=== PATIENT | female | born 1945 | race Caucasian/White ===

== ENCOUNTER 2016-11-26 16:03 | Emergency (ER) | payer OTHER ==
[2016-11-26 16:21] VITALS: BP 196/87
--- NOTE | 2016-11-26 17:26 | UC ---
General HPI - HPI Summary HPI Summary: The patient comes in today for: 1. High blood pressure and "wooshing in my ear": Onset: "Wooshing" started "a couple days ago." She went to [facility] and blood pressured measured there--211/85. She had a "very slight headache" at that time. No other symptoms. Palliative/provocative: She does not have any blood pressure machine at home and has not had any other blood pressure other than the [facility] blood pressure readings. Quality: No headache now. Region: Cardiovascular system. Severity: 0/10 Time: Comes and goes. Associated symptoms: Her usual blood pressure readings (various places--mostly at her physicians office): 6 months ago: 124/72 3 months ago: 152/70 Change in her medications recently: None. Patient states that she has been eating more salty foods recently (potato chips, tortilla chips). 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 Name = ? Denies: Cardiac Disorders, Pacemaker/ICD, Myocardial Infarction, Congestive Heart Failure, Atrial Fibrillation, Deep Vein Thrombosis, Bleeding Disorders Respiratory History Of: Denies: COPD, Asthma, Bronchitis, Pneumonia, Pulmonary Embolism GI/ History Of: Denies: Gastroesophageal Reflux, Ulcer, Gastrointestinal Bleed, Gall Bladder Disease, Kidney Stones, Diverticulitis, Renal Disease, Urosepsis Neurological History Of: Denies: TIA, CVA, Dementia, Seizures, Migraine Psychological History Of: Denies: Anxiety, Depression, Bipolar Disorder, Schizophrenia, Post Traumatic Stress Disorder Cancer History Of: Denies: Lung Cancer, Colorectal Cancer, Breast Cancer, Prostate Cancer, Cervical Cancer Other History Of: Negative For: HIV, Hepatitis B, Hepatitis C, Anticoagulant Therapy - Surgical History Surgical History: Yes Surgery Procedure, Year, and Place: HYSTERECTOMY - Family History Known Family History: Positive: Cardiac Disease, Hypertension - Social History Occupation: Unemployed, Retired Lives: With Family Alcohol Use: Daily Alcohol Amount: 1 BEER/DAY Substance Use Type: None Smoking Status (MU): Never Smoked Tobacco Review of Systems Constitutional: Negative Skin: Negative Eyes: Negative, Other - Blurring vision--saw "eye doctor" yesterday--told it is from age. ENT: Negative Respiratory: Negative Cardiovascular: Negative Gastrointestinal: Negative Genitourinary: Negative All Other Systems Reviewed And Are Negative: Yes Physical Exam Triage Information Reviewed: Yes Appearance: Well-Appearing, No Pain Distress, Well-Nourished, Other: - Anxious. Vital Signs: Initial Vital Signs Temp 97.9 F 11/26/16 16:16 Pulse 69 11/26/16 16:16 Resp 18 11/26/16 16:16 BP 196/87 11/26/16 16:16 Pulse Ox 98 11/26/16 16:16 Blood pressure: LEft arm (sitting, regular cuff): 180/80 Right arm (sitting, regular cuff): 180/80 Vital Signs Reviewed: Yes Eyes: Positive: Conjunctiva Clear. Negative: Discharge ENT: Positive: Hearing grossly normal. Negative: Pharyngeal erythema, Nasal congestion, Nasal drainage, TM bulging, TM dull, TM red, Tonsillar swelling, Tonsillar exudate Dental: Negative: Gross Decay/Caries @, Dental Fracture @ Neck: Positive: Supple, Nontender, No Lymphadenopathy, Other: - No bruits.. Negative: Nuchal Rigidity Respiratory: Positive: Chest non-tender, Lungs clear, No respiratory distress, No accessory muscle use. Negative: Rhonchi, Wheezing Cardiovascular: Positive: RRR, No Murmur Abdomen Description: Positive: Nontender, No Organomegaly, Soft. Negative: Distended, Guarding Musculoskeletal: Positive: Strength Intact, ROM Intact, No Edema Neurological: Positive: Alert, Muscle Tone Normal Psychological: Positive: Age Appropriate Behavior. Negative: Consolable Skin: Negative: rashes, breakdown Course/Dx - Course Course Of Treatment: Patientw as told of her elevated blood pressure readings. Extenstive time was taking regarding starting medications tonight or not and how she can get started on medications (through us, or her primary care provider ). She was on a vasodilator before and wanted to re-start it, but was not able to remember the name. So, her male customer supply chain analyst wanted to search the internet for names that they think she may recognize before starting anything. I told them I would see a patient while they are looking. After finishing up with another patient, this patient finally decides that she wants to go with lisinopril at 5 mg a day. She was told to see her primary care provider in 3-7 days. - Differential Dx - Multi-Symptom Provider Diagnoses: High blood pressure (systolic) Discharge - Discharge Plan Condition: Stable Disposition: HOME Patient Education Materials: Chronic Hypertension (ED) Referrals: Hetal Lester MD [Primary Care Provider] - 3 Days (Please see your primary care provider in 3-7 days or sooner if you get worse.)
== END 2016-11-26 18:57 | disposition home or self-care (01) ==
LOC: UCEAST 16:03
DX: I10 Essential (primary) hypertension (principal)
CPT/HCPCS: 99212; G0463